=== PATIENT | male | born 1965 | race Caucasian/White ===

== ENCOUNTER 2021-12-29 16:30 | Emergency (ER) | payer OTHER, SELFPAY ==
--- NOTE | 2021-12-29 16:42 | DI.RAD.S_ITS ---
PROCEDURE: XR KNEE LT 3V INDICATIONS: injury. Pain. TECHNIQUE: 3 views of the knee were acquired. COMPARISON: None. FINDINGS: Bones: No fractures or dislocations. No suspicious bony lesions. Soft tissues: No joint effusion. No suspicious soft tissue calcifications. IMPRESSION: No acute osseous abnormality. If symptoms persist, follow-up radiographs and/or CT or MRI may be helpful for further evaluation. Dictated by: Alan Lopez M.D. on 12/29/2021 at 17:03 Approved by: Alan Lopez M.D. on 12/29/2021 at 17:07
[2021-12-29 17:11] VITALS: BP 187/87; PULSE 74; RESP 19; TEMP 36.6; O2SAT 99; BMI 34.4
[2021-12-29 20:02] VITALS: BP 186/100; PULSE 60; RESP 16; TEMP 36.3; O2SAT 98
--- NOTE | 2021-12-29 20:14 | ED_ITS ---
HPI - Extremity Injury (Lower) General Chief Complaint: Extremity Injury, Lower Stated Complaint: left knee injury Time Seen by Provider: 12/29/21 19:58 Source: patient Mode of arrival: Family Vehicle History of Present Illness HPI Narrative: Patient is a 56-year-old male who approximately 1 week ago sustained an injury to his left knee. He states he was at work at the time. He was taking a large tire off of a vehicle when he twisted and had pain in his knee. Has been seen for this injury prior to this visit. It is an L and I issue per the patient. He does have a knee brace on. He also has crutches. He comes the emergency dep artment today because he has continued discomfort. Is located on the outside of the back of his knee. Related Data Home Medications Medication Instructions Recorded Confirmed No Known Home Medications 12/26/21 12/26/21 Allergies Allergy/AdvReac Type Severity Reaction Status Date / Time No Known Drug Allergies Allergy Unverified 12/26/21 12:02 Review of Systems Constitutional Constitutional: Reports system reviewed and no additional complaints, except as documented Musculoskeletal Musculoskeletal: Reports system reviewed and no additional complaints, except as documented Integumentary/Breasts Skin/Breast: Reports system reviewed and no additional complaints, except as documented Neurologic Neurologic: Reports system reviewed and no additional complaints, except as documented Patient History Medical History Left knee pain Social History Smoking Status: Former smoker Smoking Status: Former smoker tobacco type: cigarettes alcohol intake frequency: 0-2 drinks per day Substance Use Type: does not use Exam Initial Vital Signs Initial Vital Signs: Vital Signs Temperature 97.9 F 12/29/21 17:11 Pulse Rate 74 12/29/21 17:11 Respiratory Rate 19 12/29/21 17:11 Blood Pressure 187/87 H 12/29/21 17:11 Pulse Oximetry 99 12/29/21 17:11 Oxygen Delivery Method 12/29/21 17:11 HENAR Head: normal to inspection and normocephalic Resp Effort & Inspection: normal respiratory effort Skin General: no rashes or lesions noted Neuro Sensory Exam: no sensory deficits noted Extrem Other: Left leg: Patella is unremarkable. Patellar tendon and quadriceps tendon unremarkable. Medial hamstring is unremarkable. Some tenderness along the lateral hamstring tendon and also the muscle body of the lateral hamstring. Also has some discomfort along the lateral joint line. Medial joint lines unremarkable. ACL MCL PCL and LCL intact with functional testing. Left ankle unremarkable. Course Orders Ordered: ED Orders 12/29/21 16:42 XR knee LT 3V Stat Vital Signs Vital signs: Vital Signs - 8 hr 12/29/21 17:11 12/29/21 20:02 Temperature 97.9 F 97.4 F L Pulse Rate 74 60 Respiratory Rate 19 16 Blood Pressure 187/87 H 186/100 H Pulse Oximetry 99 98 Oxygen Delivery Method Room Air Room Air MDM - Extremity Injury (Lower) Imaging Data Extremity x-ray #1: Radiologist's Impression: [address] [address] XRay Report Signed Patient: Michael Novak MR#: [id number] : 1965 Acct:[id number] Age/Sex: 56 / M Date of Service: 12/29/21 Loc: ED Accession Number: [id number] ?? Procedure: XR knee LT 3V Ordering Provider: Tim Beasley MD PROCEDURE:? XR KNEE LT 3V ? INDICATIONS:? injury.? Pain. ? TECHNIQUE:? 3 views of the knee were acquired.? ? COMPARISON:? None. ? FINDINGS:? ? Bones:? No fractures or dislocations.? No suspicious bony lesions.? ? Soft tissues:? No joint effusion.? No suspicious soft tissue calcifications.? ? ? IMPRESSION:? ? No acute osseous abnormality.? If symptoms persist, follow-up radiographs and/or CT or MRI may be helpful for further evaluation.? ? Dictated by: Alan Lopez M.D. on 12/29/2021 at 17:03 ? ? Approved by: Alan Lopez M.D. on 12/29/2021 at 17:07? [facility] Narrative Medical decision making narrative: X-ray today is unremarkable. Suspect either a meniscus injury or potentially a muscle strain given his mechanism and his exam today. Informed patient of this. Told him that he does need to follow up with either his primary doctor or the L and I providers to discuss further evaluation and treatment to include either a referral to see physical therapy or more advanced imaging such as an MRI. These modalities are not indicated here in the emergency department today. He can continue with the knee brace in the crutches as tolerated. He can ambulate as tolerated. Neurovascularly intact. He was given return precautions. Discharge Plan Departure Patient Disposition: Home Clinical Impression: Knee pain, left Instructions: How To Perform RICE (Rest, Ice, Compress, Elevate) Activity Restrictions/Additional Instructions: Your x-ray today did not show any signs of a fracture. I am not surprised by this given your mechanism of injury. You are however going to need further evaluation either by Orthopedics or your primary doctor or the [facility] has you may need further workup to include a MRI or physical therapy. Prescriptions: No Action No Known Home Medications Referrals: Miscellaneous,Doctor, [Primary Care Provider] - Stand Alone Forms: Work Release Note Visit Report Forms: Patient Portal/API
--- NOTE | 2021-12-29 20:53 | PC.NURSE ---
Assessment completed by provider without RN involvement
== END 2021-12-29 20:56 | disposition home or self-care (01) ==
PROVIDERS: Emergency Provider Emergency Medicine
DX: M25.562 Pain in left knee (principal); X50.1XXA Overexertion from prolonged static or awkward postures, initial encounter
CPT/HCPCS: 73562; 99283

== ENCOUNTER → 2022-01-17 10:32 | Outpatient (CLI) | payer OTHER, SELFPAY ==
--- NOTE | 2022-01-17 | DI.MRI.S_ITS ---
PROCEDURE: MR KNEE LT WO CON INDICATIONS: Pain in left knee/rule out lateral meniscus tear TECHNIQUE: Noncontrast sagittal PD fast spin echo and T2 fast spin echo with fat saturation, sagittal 3-D FLASH with fat saturation; coronal T1 spin echo and PD fast spin echo with fat saturation, and axial PD fast spin echo with fat saturation through the knee. COMPARISON: None. FINDINGS: Image quality: Excellent. Menisci: Tiny horizontal tear of the posterior horn of the lateral meniscus. The meniscal popliteal fascicles are intact. Complex tear and degenerative signal abnormality of the body and posterior horn of the medial meniscus. There is a radial tear near the root. Cruciate ligaments: Intact Medial structures: MCL is intact. Semimembranosus insertional tendinopathy. The pes anserine tendons are intact. Lateral structures: The iliotibial band is intact the biceps femoris and LCL are intact. The popliteus tendon is intact. Anterior structures: Extensor mechanism enthesopathy with thickening anterior to the patellar tendon with some edema. The medial retinaculum is intact. Mild Hoffa's fat pad edema. Bones and cartilage: No acute fracture or dislocation. Mild chondromalacia. Early osteophytosis and joint space loss most noticeable in the medial compartment. Joint space: Physiologic joint fluid. Possibly ruptured Cormier's cyst. IMPRESSION: Complex tear of the medial meniscus involving the body, posterior horn, and a radial tear at the root. There is a tiny horizontal tear of the lateral meniscus. Early degenerative changes. Prepatellar edema. Mild Hoffa's fat pad edema. Extensor mechanism enthesopathy. Other findings as above. Dictated by: Jesus Clark M.D. on 01/17/2022 at 16:39 Approved by: Jeuss Clakr M.D. on 01/17/2022 at 16:44
== END ==
PROVIDERS: Referring Provider Orthopaedic Surgery; Visit Provider Orthopaedic Surgery
DX: S83.232A Complex tear of medial meniscus, current injury, left knee, initial encounter (principal); M25.562 Pain in left knee
CPT/HCPCS: 73721